=== PATIENT | female | born 1955 | race Caucasian/White ===

== ENCOUNTER 2018-05-31 14:52 | Emergency (ER) | payer OTHER ==
--- NOTE | 2018-05-31 16:01 | UC ---
Complaint Female HPI - HPI Summary HPI Summary: 63 yo female presents accompanied by daughter with complaints of urinary pressure and hematuria starting 2 days ago. She has had a UTI in the past and this feels the same. Of note, pt's BP is very elevated today. She tells me that she has a long standing history of uncontrolled HTN and has been on three HTN medications with baseline around 150s/90s per pt. Recently her HCTZ was not refilled by her doctor and she has had a change of insurance and her PCP no longer accepts that insurance - thus she is almost out of her other two HTN medications. Pt admits that she has been dizzy and flushed quite often recently, but denies SOB or chest pain. - History Of Current Complaint Chief Complaint: UCGU Stated Complaint: UTI Time Seen by Provider: 05/31/18 16:01 Hx Obtained From: Patient Severity Currently: None Pain Intensity: 0 - Allergies/Home Medications Allergies/Adverse Reactions: Allergies Allergy/AdvReac Type Severity Reaction Status Date / Time atorvastatin Allergy Muscle Ache Verified 05/31/18 18:53 SEASONAL ALLERGY Allergy STUFFINESS, Uncoded 05/31/18 17:26 EYES WATERY PMH/Surg Hx/FS Hx/Imm Hx Cardiovascular History: Hypertension - Surgical History Surgical History: Yes Surgery Procedure, Year, and Place: 2009 LEFT H[place] [facility] [place] SKIN GRAFT FOR MELANOMA ON LEFT FOOT, [facility] [place]. right mastectomy 2012 - Family History Known Family History: Positive: Hypertension - Social History Occupation: Employed Full-time Lives: With Family Alcohol Use: None Substance Use Type: None Smoking Status (MU): Light Every Day Tobacco Smoker Amount Used/How Often: 1 PPD Have You Smoked in the Last Year: Yes When Did the Patient Quit Smoking/Using Tobacco: 06/2013 - Immunization History Most Recent Influenza Vaccination: UNKNOWN Most Recent Tetanus Shot: UTD Most Recent Pneumonia Vaccination: 01/2013 Review of Systems Constitutional: Negative Skin: Negative Eyes: Negative ENT: Negative Respiratory: Negative Cardiovascular: Negative Gastrointestinal: Negative Genitourinary: Dysuria Neurovascular: Negative Musculoskeletal: Negative Neurological: Other - Dizziness Psychological: Negative All Other Systems Reviewed And Are Negative: Yes Physical Exam - Summary Physical Exam Summary: GENERAL: NAD. WDWN. No pain distress. SKIN: No rashes, sores, lesions, or open wounds. NECK: Supple. Nontender. No lymphadenopathy. CHEST: CTAB. No r/r/w. No accessory muscle use. Breathing comfortably and in no distress. CV: RRR. Without m/r/g. Pulses intact. Cap refill <2seconds ABDOMEN: Soft. NTTP. No distention or guarding. No CVA tenderness. Bowel sounds present NEURO: Alert. PSYCH: Age appropriate behavior. Triage Information Reviewed: Yes Vital Signs: Initial Vital Signs Temp 99.6 F 05/31/18 15:52 Pulse 89 05/31/18 15:52 Resp 16 05/31/18 15:52 BP 214/102 05/31/18 15:52 Pulse Ox 99 05/31/18 15:52 Laboratory Tests 05/31/18 16:14 POC Urine Color Yellow POC Urine Clarity Cloudy POC Urine pH 5.5 POC Ur Specif Dewitt <= 1.005 L POC Urine Protein Negative POC Ur Glucose (UA) Negative POC Urine Ketones Negative POC Urine Blood Trace-lysed A POC Urine Nitrite Negative POC Urine Bilirubin Negative POC Urine Urobilinogen 0.2 POC U Leukocyte Esteras 1+ A Vital Signs Reviewed: Yes Complaint Female Dx - Course Course Of Treatment: UA with signs of infection - will treat with Cipro. Regarding her BP - I discussed at length with pt and her daughter that her BP is very significantly elevated and, if left untreated at this reading, is placing her at an increased CVA and cardiac risk. Pt was hesistant, but with daughter's persistance - agreed to go to the ED for treatment of her BP. Daughter will drive her. Given that she is almost out of her two HTN medications and has been out of the third medication - I will rx for a 30 day supply of all 3 medications until she is able to find a new PCP. - Differential Dx/Diagnosis Provider Diagnoses: UTI. HTN. Dizziness Discharge - Sign-Out/Discharge Documenting (check all that apply): Patient Departure All imaging exams completed and their final reports reviewed: No Studies - Discharge Plan Condition: Stable Disposition: HOME-RECOMMEND TO ED Prescriptions: Ciprofloxacin TAB* [Cipro 250 MG Tab*] 250 mg PO BID #10 tab Hydrochlorothiazide TAB* [Hydrodiuril TAB*] 25 mg PO DAILY #30 tab Lisinopril 40 mg PO DAILY #30 tablet Metoprolol Succinate XL TAB* [Toprol XL TAB*] 100 mg PO DAILY #30 tab.xl Patient Education Materials: Urinary Tract Infection in Women (DC), Hypertension (ED) Referrals: Elan Núñez MD [Primary Care Provider] - Additional Instructions: Please go to the ER for further evaluation of your high blood pressure - Billing Disposition and Condition Condition: STABLE Disposition: Home-Recommend to ED
[2018-05-31 16:42] VITALS: BP 204/112
--- NOTE | 2018-06-01 20:00 | UC ---
- Progress Note Progress Note: + E. coli pt on cipro await sensitivity jj 06/01/18 Discharge - Sign-Out/Discharge Documenting (check all that apply): Post-Discharge Follow Up All imaging exams completed and their final reports reviewed: No Studies - Discharge Plan Condition: Stable Disposition: HOME-RECOMMEND TO ED Patient Education Materials: Urinary Tract Infection in Women (DC), Hypertension (ED) Referrals: Elan Núñez MD [Primary Care Provider] - Additional Instructions: Please go to the ER for further evaluation of your high blood pressure - Billing Disposition and Condition Condition: STABLE Disposition: Home-Recommend to ED
== END 2018-05-31 16:55 | disposition home health service (06) ==
LOC: UCEAST 14:52
DX: N39.0 Urinary tract infection, site not specified (principal); B96.20 Unspecified Escherichia coli [E. coli] as the cause of diseases classified elsewhere; R31.9 Hematuria, unspecified; Z87.440 Personal history of urinary (tract) infections; I10 Essential (primary) hypertension; R42 Dizziness and giddiness; Z96.642 Presence of left artificial hip joint; Z88.8 Allergy status to other drugs, medicaments and biological substances; Z87.891 Personal history of nicotine dependence
CPT/HCPCS: 81003; 87077; 87086; 87186; 99212; G0463

== ENCOUNTER 2018-05-31 17:14 | Observation (INO) | payer OTHER ==
[2018-05-31] MEDS ORDERED: Metoprolol Tartrate IV* 1 MG/ML 5 ML VIAL IV ONE (19:28)
[2018-05-31 20:06] LABS: ABS Basophils 0.1 10^3/ul (0-0.2); ABS Eosinophils 0.3 10^3/ul (0-0.6); ABS Lymphocytes 2.9 10^3/ul (1.0-4.8); ABS Monocytes 0.5 10^3/ul (0-0.8); ABS Neutrophils 6.8 10^3/ul (1.5-7.7); ABS Nucleated RBC 0 10^3/ul; Eosinophil % 2.5 % (0-6); Hematocrit 38 % (35-47); Hemoglobin 12.7 g/dl (12.0-16.0); Lymphocyte % 27.2 % (25-47); Mean Corpuscular HGB Conc 33 g/dl (31-36); Mean Corpuscular Hemoglobin 29 pg (27-31); Mean Corpuscular Volume 88 fL (80-97); Mean Platelet Volume 7.8 um3 (7.4-10.4); Nucleated Red Blood Cells % 0.1; Platelet Count 257 10^3/ul (150-450); Red Blood Count 4.33 10^6/ul (4.00-5.40); Red Cell Distribution Width 14 % (10.5-15); White Blood Count 10.6 10^3/ul (3.5-10.8)
[2018-05-31] MEDS ORDERED: Hydrochlorothiazide TAB* 25 MG PO ONE (20:11)
[2018-05-31] MEDS ORDERED: hydrALAZINE IV* 20 MG/ML VIAL IV SLOW PU ONE (20:11)
[2018-05-31 20:23] LABS: EGFR Non-African American 88.6 (>60)
[2018-05-31] MEDS ORDERED: Acetaminophen TAB* 325 MG PO PRN (20:41)
--- NOTE | 2018-05-31 20:41 | ED ---
Hypertension - HPI Summary HPI Summary: The pt is a 63 y/o female presenting to [facility] c/o hypertension reaching 222/132 at the highest. She was sent from Urgent Care where she had been seen for a UTI. She notes BINGHAM, lightheadedness, dizziness, urinary sx (hematuria and increased frequency) but denies CP and SOB. One of her 3 HTN pills did not get refilled 3 weeks ago. Her blood pressure at baseline is about 154/82. - History of Current Complaint Chief Complaint: EDHypertension Stated Complaint: HIGH BLOOD PRESSURE Time Seen by Provider: 05/31/18 19:25 Hx Obtained From: Patient Onset/Duration: Still Present Associated Signs & Symptoms: Negative - CP, SOB, Headaches, Urinary Symptoms, Other: - lightheadedness, dizziness - Allergies/Home Medications Allergies/Adverse Reactions: Allergies Allergy/AdvReac Type Severity Reaction Status Date / Time atorvastatin Allergy Muscle Ache Verified 05/31/18 18:53 SEASONAL ALLERGY Allergy STUFFINESS, Uncoded 05/31/18 17:26 EYES WATERY PMH/Surg Hx/FS Hx/Imm Hx Previously Healthy: No Endocrine/Hematology History: Denies: Hx Diabetes - BEING WATCHED, SLIGHT ELEVATION WITH A BLOOD TEST, Hx Sickle Cell Disease Cardiovascular History: Reports: Hx Hypertension - some meds ran out Denies: Hx Myocardial Infarction, Other Cardiovascular Problems/Disorders GI History: Denies: Other GI Disorders History: Denies: Other Problems/Disorders Musculoskeletal History: Reports: Hx Arthritis - LEFT HIP WITH REPLACEMENT IN 2009 Denies: Hx Osteoporosis, Other Musculoskeletal History Sensory History: Reports: Hx Contacts or Glasses - GLASSES Denies: Hx Hearing Aid Opthamlomology History: Reports: Hx Contacts or Glasses - GLASSES Neurological History: Denies: Other Neuro Impairments/Disorders - Cancer History Cancer Type, Location and Year: breast Hx Chemotherapy: No Hx Radiation Therapy: No - Surgical History Surgery Procedure, Year, and Place: 2009 LEFT HIP REPLACEMENT, [facility] [place]. 1988 SKIN GRAFT FOR MELANOMA ON LEFT FOOT, [facility]. right mastectomy 2013 Hx Anesthesia Reactions: No Infectious Disease History: No Infectious Disease History: Denies: Traveled Outside the [place] in Last 30 Days - Family History Known Family History: Positive: Cardiac Disease - Father and brother , Diabetes - Social History Occupation: Retired Lives: With Family Alcohol Use: None Substance Use Type: Reports: None Smoking Status (MU): Light Every Day Tobacco Smoker Amount Used/How Often: 1 PPD Have You Smoked in the Last Year: Yes Review of Systems Constitutional: Other - Positive: Dizziness, lightheadedness Cardiovascular: Other - Positive: [id number] HTN Negative: Chest Pain Negative: Shortness Of Breath Positive: hematuria, urgency Positive: Headache All Other Systems Reviewed And Are Negative: Yes Physical Exam - Summary Physical Exam Summary: Constitutional: Well-developed, Well-nourished, Alert. (-) Distressed Skin: Warm, Dry HENT: Normocephalic; Atraumatic Eyes: Conjunctiva normal Neck: Musculoskeletal ROM normal neck. (-) JVD, (-) Stridor, (-) Tracheal deviation Cardio: Rhythm regular, rate normal, Heart sounds normal; Intact distal pulses; The pedal pulses are 2+ and symmetric. Radial pulses are 2+ and symmetric. (-) Murmur Pulmonary/Chest wall: Effort normal. (-) Respiratory distress, (-) Wheezes, (-) Rales Abd: Soft, (-) epigastric tenderness, (-) Distension, (-) Guarding, (-) Rebound Musculoskeletal: (-) Edema Lymph: (-) Cervical adenopathy Neuro: Alert, Oriented x3 Psych: Mood and affect Normal Triage Information Reviewed: Yes Vital Signs On Initial Exam: Initial Vitals Temp Pulse Resp BP Pulse Ox 97.8 F 78 18 213/108 99 05/31/18 17:22 05/31/18 17:22 05/31/18 17:22 05/31/18 17:22 05/31/18 17:22 Vital Signs Reviewed: Yes Diagnostics - Vital Signs Vital Signs Temp Pulse Resp BP Pulse Ox 05/31/18 17:22 97.8 F 78 18 213/108 99 - Laboratory Lab Results: Lab Results 05/31/18 05/31/18 05/31/18 Range/Units 20:00 20:00 20:00 WBC 10.6 (3.5-10.8) 10^3/ul RBC 4.33 (4.00-5.40) 10^6/ul Hgb 12.7 (12.0-16.0) g/dl Hct 38 (35-47) % MCV 88 (80-97) fL MCH 29 (27-31) pg MCHC 33 (31-36) g/dl RDW 14 (10.5-15) % Plt Count 257 (150-450) 10^3/ul MPV 7.8 (7.4-10.4) um3 Neut % (Auto) 64.3 (38-83) % Lymph % (Auto) 27.2 (25-47) % Gulf % (Auto) 5.1 (0-7) % Eos % (Auto) 2.5 (0-6) % Baso % (Auto) 0.9 (0-2) % Absolute Neuts (auto) 6.8 (1.5-7.7) 10^3/ul Absolute Lymphs (auto) 2.9 (1.0-4.8) 10^3/ul Absolute Monos (auto) 0.5 (0-0.8) 10^3/ul Absolute Eos (auto) 0.3 (0-0.6) 10^3/ul Absolute Basos (auto) 0.1 (0-0.2) 10^3/ul Absolute Nucleated RBC 0 10^3/ul Nucleated RBC % 0.1 Sodium 142 (135-145) mmol/L Potassium 3.8 (3.5-5.0) mmol/L Chloride 107 (101-111) mmol/L Carbon Dioxide 26 (22-32) mmol/L Anion Gap 9 (2-11) mmol/L BUN 12 (6-24) mg/dL Creatinine 0.67 (0.51-0.95) mg/dL Est GFR ( Amer) 107.2 (>60) Est GFR (Non-Af Amer) 88.6 (>60) BUN/Creatinine Ratio 17.9 (8-20) Glucose 82 (70-100) mg/dL Lactic Acid 1.3 (0.5-2.0) mmol/L Calcium 9.4 (8.6-10.3) mg/dL Total Bilirubin 0.20 (0.2-1.0) mg/dL AST 11 L (13-39) U/L ALT 9 (7-52) U/L Alkaline Phosphatase 60 (34-104) U/L Troponin I 0.00 (<0.04) ng/mL Total Protein 6.9 (6.4-8.9) g/dL Albumin 3.9 (3.2-5.2) g/dL Globulin 3.0 (2-4) g/dL Albumin/Globulin Ratio 1.3 (1-3) Result Diagrams: 05/31/18 20:00 05/31/18 20:00 Lab Statement: Any lab studies that have been ordered have been reviewed, and results considered in the medical decision making process. - Radiology CXR Radiology Interpretation Completed By: ED Physician - Pending official report - EKG 19:39 Cardiac Rate: NL - 67 bpm EKG Rhythm: Sinus Rhythm EKG Interpretation: No STEMI Hypertension Course/Dx - Course Course Of Treatment: A 63 year-old F presents to the ED with a CC of acute on chronic hypertension reaching 222/132 at the highest. She was sent from Urgent Care where she had been seen for a UTI. She notes BINGHAM, lightheadedness, dizziness , urinary sx (hematuria and increased frequency) but denies CP and SOB. One of her 3 HTN pills did not get refilled 3 weeks ago. Her blood pressure at baseline is about 154/82. A physical exam Is unremarkable. An EKG is unremarkable. In the ED course, the pt was given Acetaminophen 650mg PO, Hydralazine 5mg IV, Hydrochlorothiazide 25 mg PO and Metoprolol 5 mg which improved the symptoms. Patient will be admitted with a final Dx of unspecified CP and hypertensive crisis. Pt is agreeable with this plan. Allergies noted. - Diagnoses Provider Diagnoses: Chest pain, unspecified, Hypertensive emergency - Physician Notifications Discussed Care Of Patient With: Eri Brooks - Hospitalist Time Discussed With Above Provider: 21:50 Instructed by Provider To: Admit As Inpatient Discharge - Sign-Out/Discharge Documenting (check all that apply): Patient Departure - Admit All imaging exams completed and their final reports reviewed: Yes - Discharge Plan Disposition: ADMITTED TO [facility] - Attestation Statements Document Initiated by Scribe: Yes Documenting Scribe: Steff Chavarria Provider For Whom Scribe is Documenting (Include Credential): Dr. Joe Tom MD Scribe Attestation: Steff Calvo , scribed for Dr. Joe Tom MD on 05/31/18 at 2302.
[2018-05-31] MEDS ORDERED: Ciprofloxacin TAB* 250 MG PO SCH (21:00)
[2018-05-31] MEDS ORDERED: hydrALAZINE IV* 20 MG/ML VIAL IV SLOW PU PRN (21:22)
[2018-05-31] MEDS ORDERED: hydrALAZINE IV* 20 MG/ML VIAL ONE (21:59)
[2018-05-31] MEDS ORDERED: LORazepam INJ* 2 MG/ML 1 ML VIAL IV PUSH ONE (22:35)
[2018-05-31] MEDS ORDERED: Ibuprofen TAB* 400 MG PO PRN (22:40)
--- NOTE | 2018-05-31 22:53 | HP ---
Review of Systems - Medications/Allergies Allergies/Adverse Reactions: Allergies Allergy/AdvReac Type Severity Reaction Status Date / Time atorvastatin Allergy Muscle Ache Verified 05/31/18 18:53 SEASONAL ALLERGY Allergy STUFFINESS, Uncoded 05/31/18 17:26 EYES WATERY Medications: Current Medications Acetaminophen (Tylenol Tab*) 650 mg PO Q4H PRN PRN Reason: FEVER/PAIN Amlodipine Besylate (Norvasc Tab*) 5 mg PO DAILY [facility] Ciprofloxacin (Cipro Tab*) 500 mg PO Q12HR [facility] Ciprofloxacin (Cipro Tab*) 500 mg PO BID [facility] Enoxaparin Sodium (Lovenox(*)) 40 mg SUBCUT Q24H [facility] Hydralazine HCl (Apresoline Iv*) 5 mg IV SLOW PU Q6H PRN PRN Reason: SYSTOLIC BP GREATER THAN: Last Admin: 05/31/18 22:00 Dose: 5 mg Ibuprofen (Motrin Tab*) 400 mg PO Q6H PRN PRN Reason: PAIN Metoprolol Succinate (Toprol Xl Tab*) 100 mg PO DAILY [facility] Non-Formulary Medication (Lisinopril [Lisinopril]) 40 mg PO DAILY [facility] Exam - Exam Vital Signs: Vital Signs (72 hours) 05/31/18 05/31/18 05/31/18 17:22 19:03 19:05 Temperature 97.8 F Pulse Rate 78 68 67 Respiratory 18 23 17 Rate Blood Pressure 213/108 206/131 (mmHg) O2 Sat by Pulse 99 99 99 Oximetry 05/31/18 05/31/18 05/31/18 19:22 19:52 20:00 Temperature Pulse Rate 66 70 64 Respiratory 21 20 20 Rate Blood Pressure 192/98 203/100 192/100 (mmHg) O2 Sat by Pulse 98 96 96 Oximetry 05/31/18 05/31/18 05/31/18 20:01 20:08 20:22 Temperature Pulse Rate 61 65 63 Respiratory 15 24 20 Rate Blood Pressure 195/107 191/98 (mmHg) O2 Sat by Pulse 98 98 96 Oximetry 05/31/18 05/31/18 05/31/18 20:48 21:00 21:03 Temperature Pulse Rate 67 66 65 Respiratory 19 17 16 Rate Blood Pressure 196/107 182/100 (mmHg) O2 Sat by Pulse 97 98 98 Oximetry 05/31/18 05/31/18 21:33 21:48 Temperature Pulse Rate 69 69 Respiratory 20 18 Rate Blood Pressure 179/103 188/93 (mmHg) O2 Sat by Pulse 97 97 Oximetry
[2018-05-31] MEDS ORDERED: Enoxaparin(*) 40 MG/0.4 ML SYR SUBCUT SCH (23:00)
[2018-05-31] MEDS: amLODIPine TAB* 5 MG PO SCH (23:05)
[2018-05-31] MEDS: Ciprofloxacin TAB* 250 MG PO SCH (23:05)
[2018-06-01 07:03] LABS: ABS Basophils 0.1 10^3/ul (0-0.2); ABS Eosinophils 0.3 10^3/ul (0-0.6); ABS Lymphocytes 2.7 10^3/ul (1.0-4.8); ABS Monocytes 0.5 10^3/ul (0-0.8); ABS Neutrophils 5.5 10^3/ul (1.5-7.7); ABS Nucleated RBC 0 10^3/ul; Eosinophil % 3.3 % (0-6); Hematocrit 37 % (35-47); Hemoglobin 12.5 g/dl (12.0-16.0); Lymphocyte % 29.8 % (25-47); Mean Corpuscular HGB Conc 34 g/dl (31-36); Mean Corpuscular Hemoglobin 30 pg (27-31); Mean Corpuscular Volume 88 fL (80-97); Mean Platelet Volume 7.7 um3 (7.4-10.4); Nucleated Red Blood Cells % 0.3; Platelet Count 231 10^3/ul (150-450); Red Blood Count 4.17 10^6/ul (4.00-5.40); Red Cell Distribution Width 14 % (10.5-15); White Blood Count 9.1 10^3/ul (3.5-10.8)
[2018-06-01 07:25] LABS: EGFR Non-African American 85.7 (>60)
--- NOTE | 2018-06-01 07:53 | RAD ---
Indication: Hypertension. Single frontal view of the chest performed at 1935 hours was reviewed. Comparison is made with previous exam dated March 17, 2018. No mediastinal shift is noted. Heart is of normal size and configuration. Lung pulido appear clear. IMPRESSION: NO ACTIVE CARDIOPULMONARY DISEASE IS NOTED. R1
--- NOTE | 2018-06-01 08:01 | ADMNOTE ---
Subjective Date of Service: 05/31/18 Interval History: this is a admission h/p hpi 63 yr old wf went to her prior pcp due to uti related symptoms pt was found to be very htn and was told her pcp did not accept her insurance any more and was d /cd from their service. pt was found to have sbp >220 ---> she has been taking three different b/p meds but ran out of ONLY hctz for three weeks ---> she got two doses of hydralazine 5 mg with no relief sbp still 180 ---> very anxious --- > ativan 1 mg times one given and norvasc added to am ---> she complained feeling dizzy with occassional b/l temporal bell ---> bell was not presented when seen pt was on chantix but still smokes few cig daily has hx of cig 1-1.5 ppd for 40 + yrs pt has been on cipro for one dose for her uti Family History: Unchanged from Admission - htn dm---> father at age 61 due to cad brother + dm and cad Social History: Findings - still few cig on chantix used to smoke 1-1.5 ppd for 40+ yrs, no etoh walks indep comes from home Past Medical History: Findings - phx htn morbid obesity hyperlidemia cig smoking still smokes on chantix anxiety htn breast ca s/p r mastectomy 5 yrs ago had 59 months of tamoxifen remained in remission xhs s/p left foot melanoma excision 30 yrs ago s/p left hip orif >10 yrs ago Review of Systems - Measurements Intake and Output: Intake and Output Last 24 Hours 05/30/18 05/31/18 06/01/18 06/02/18 06:59 06:59 06:59 06:59 Intake Total 0 Balance 0 Weight 177 lb 14.4 oz Intake: Oral 0 Other: # Bowel Movements 0 # Voids 1 - Review of Systems General Comments: 08/02 ros went her with her please refer to hpi Objective Active Medications: Acetaminophen (Tylenol Tab*) 650 mg PO Q4H PRN PRN Reason: FEVER/PAIN Last Admin: 05/31/18 23:04 Dose: 650 mg Amlodipine Besylate (Norvasc Tab*) 5 mg PO DAILY [facility] Last Admin: 05/31/18 23:05 Dose: 5 mg Ciprofloxacin (Cipro Tab*) 500 mg PO Q12HR [facility] Last Admin: 05/31/18 23:05 Dose: 500 mg Enoxaparin Sodium (Lovenox(*)) 40 mg SUBCUT Q24H [facility] Last Admin: 05/31/18 23:31 Dose: 40 mg Hydralazine HCl (Apresoline Iv*) 5 mg IV SLOW PU Q6H PRN PRN Reason: SYSTOLIC BP GREATER THAN: Last Admin: 05/31/18 22:00 Dose: 5 mg Ibuprofen (Motrin Tab*) 400 mg PO Q6H PRN PRN Reason: PAIN Lisinopril (Prinivil Tab*) 40 mg PO DAILY [facility] Metoprolol Succinate (Toprol Xl Tab*) 100 mg PO DAILY [facility] Vital Signs - 8 hr 06/01/18 06/01/18 06/01/18 00:03 02:53 03:49 Temperature 98 F 97.7 F Pulse Rate 83 75 Respiratory 22 22 20 Rate Blood Pressure 129/70 138/92 (mmHg) O2 Sat by Pulse 98 98 Oximetry 06/01/18 07:33 Temperature Pulse Rate Respiratory 20 Rate Blood Pressure (mmHg) O2 Sat by Pulse Oximetry Oxygen Devices in Use Now: None Eyes: No Scleral Icterus, PERRLA Ears/Nose/Mouth/Throat: NL Teeth, Lips, Gums, Clear Oropharnyx, Mucous Membranes Moist Neck: NL Appearance and Movements; NL JVP, Trachea Midline, No Thyroid Enlargement, Masses Respiratory: Symmetrical Chest Expansion and Respiratory Effort, Clear to Auscultation Cardiovascular: NL Sounds; No Murmurs; No JVD, RRR, No Edema Abdominal: NL Sounds; No Tenderness; No Distention Extremities: No Edema, No Clubbing, Cyanosis Skin: No Rash or Ulcers Neurological: Alert and Oriented x 3, NL Sensation, NL Muscle Strength and Tone - ekg ns no acute st t changes seen Result Diagrams: 06/01/18 06:46 06/01/18 06:46 Additional Lab and Data: Lab Results 05/31/18 05/31/18 05/31/18 Range/Units 20:00 20:00 20:00 WBC 10.6 (3.5-10.8) 10^3/ul RBC 4.33 (4.00-5.40) 10^6/ul Hgb 12.7 (12.0-16.0) g/dl Hct 38 (35-47) % MCV 88 (80-97) fL MCH 29 (27-31) pg MCHC 33 (31-36) g/dl RDW 14 (10.5-15) % Plt Count 257 (150-450) 10^3/ul MPV 7.8 (7.4-10.4) um3 Neut % (Auto) 64.3 (38-83) % Lymph % (Auto) 27.2 (25-47) % Graves % (Auto) 5.1 (0-7) % Eos % (Auto) 2.5 (0-6) % Baso % (Auto) 0.9 (0-2) % Absolute Neuts (auto) 6.8 (1.5-7.7) 10^3/ul Absolute Lymphs (auto) 2.9 (1.0-4.8) 10^3/ul Absolute Monos (auto) 0.5 (0-0.8) 10^3/ul Absolute Eos (auto) 0.3 (0-0.6) 10^3/ul Absolute Basos (auto) 0.1 (0-0.2) 10^3/ul Absolute Nucleated RBC 0 10^3/ul Nucleated RBC % 0.1 Sodium 142 (135-145) mmol/L Potassium 3.8 (3.5-5.0) mmol/L Chloride 107 (101-111) mmol/L Carbon Dioxide 26 (22-32) mmol/L Anion Gap 9 (2-11) mmol/L BUN 12 (6-24) mg/dL Creatinine 0.67 (0.51-0.95) mg/dL Est GFR ( Amer) 107.2 (>60) Est GFR (Non-Af Amer) 88.6 (>60) BUN/Creatinine Ratio 17.9 (8-20) Glucose 82 (70-100) mg/dL Lactic Acid 1.3 (0.5-2.0) mmol/L Calcium 9.4 (8.6-10.3) mg/dL Total Bilirubin 0.20 (0.2-1.0) mg/dL AST 11 L (13-39) U/L ALT 9 (7-52) U/L Alkaline Phosphatase 60 (34-104) U/L Troponin I 0.00 (<0.04) ng/mL Total Protein 6.9 (6.4-8.9) g/dL Albumin 3.9 (3.2-5.2) g/dL Globulin 3.0 (2-4) g/dL Albumin/Globulin Ratio 1.3 (1-3) Assess/Plan/Problems-Billing Assessment: 63 yr old wf with hx of htn anxiety breast ca in remission about 59 months presented to er after she was d/cd from pcp service ---> her sbp was 220 ---> ran out of hctz for 3 weeks but has been taking the rest of b/p meds - Patient Problems (1) Hypertensive urgency Status: Acute Code(s): I16.0 - HYPERTENSIVE URGENCY SNOMED Code(s): 686744449 Comment: sbp still high after two doses of hydralazine iv norvac added and dropped hctz but continue her home sbp meds tele with [facility] echo ativan 1 mg ivp times one given (2) Breast calcification, right Status: Acute Code(s): R92.1 - MAMMOGRAPHIC CALCIFCN FOUND ON DIAGNOSTIC IMAGING OF BREAST SNOMED Code(s): 261289384 Comment: supportive care tamoxifen was d/cd by her onc outpt (3) Anxiety Status: Acute Code(s): F41.9 - ANXIETY DISORDER, UNSPECIFIED SNOMED Code(s) : 62100062 Comment: ativan one dose given ? low dose antidepressant (4) Cigar smoker Status: Acute Code(s): F17.290 - NICOTINE DEPENDENCE, OTHER TOBACCO PRODUCT, UNCOMPLICATED SNOMED Code(s): 06329071 Comment: non compliance - supportive care no chantix given because she still smokes despite of chantix (5) Lightheadedness Status: Acute Code(s): R42 - DIZZINESS AND GIDDINESS SNOMED Code(s): 164904369 Comment: prob related to htn urgency consider check orthostatic if still symptom + echo
[2018-06-01] MEDS: amLODIPine TAB* 5 MG PO SCH (08:59)
[2018-06-01] MEDS: Ciprofloxacin TAB* 250 MG PO SCH (08:59)
[2018-06-01] MEDS ORDERED: Metoprolol Succinate XL TAB* 100 MG PO SCH (09:00)
[2018-06-01] MEDS ORDERED: Lisinopril TAB* 10 MG PO SCH (09:00)
--- NOTE | 2018-06-01 09:31 | ECHO ---
Patient: SEBASTIAN RICARDO [facility] Rec#: [id number] : 1955 Date: 06/01/2018 Age: 63y Height: 163 cm / 64.2 in Weight: 80.5 kg / 177.4 lbs Sex: F BSA: 1.9 Room#: 451 Admit Date#: 05/31/2018 Type: Inpatient Referring: Eri Brooks Reading: Xavier Ibrahim MD Refinish Technician: Crissy Tejada RN RDCS Transthoracic Echocardiogram Indication: HTN urgency BP: 138/92 HR: 73 Rhythm: NSR Findings History: HTN, breast cancer, smoker Technical Comments: The study quality is fair. The study is technically limited due to patient body habitus. The study is technically limited due to the patient's smoking history. Left Ventricle: The left ventricular chamber size is normal. Mild concentric left ventricular hypertrophy is observed. Global left ventricular wall motion and contractility are within normal limits. There is normal left ventricular systolic function. The estimated ejection fraction is 60-65%. There is an E to A reversal in the mitral valve flow pattern suggestive of diastolic dysfunction. Left Atrium: The left atrial chamber size is normal. Right Ventricle: The right ventricular chamber size and systolic function are within normal limits. The right ventricle wall thickness is mildly increased. The right ventricular global systolic function is normal. Right Atrium: The right atrial cavity size is normal. Aortic Valve: The aortic valve is trileaflet. The aortic valve leaflets are mildly thickened. There is aortic annular calcification. There is no evidence of aortic regurgitation. There is no evidence of aortic stenosis. Mitral Valve: The mitral valve leaflets are mildly thickened. There is a trace of mitral regurgitation. Tricuspid Valve: The tricuspid valve leaflets are normal. There is trace to mild tricuspid regurgitation. There is evidence of mild pulmonary hypertension. Pulmonic Valve: The pulmonic valve structure is not well visualized. There is no evidence of pulmonic regurgitation. There is no pulmonic stenosis. Pericardium: There is no significant pericardial effusion. A pericardial fat pad is visualized. Aorta: The ascending aorta is not well visualized. There is no dilatation of the aortic arch. There is no dilation of the aortic root. Pulmonary Artery: The main pulmonary artery is not well visualized. Venous: The inferior vena cava appears normal in size. There is a greater than 50% respiratory change in the inferior vena cava dimension. Conclusions There is normal left ventricular systolic function. The estimated ejection fraction is 60-65%. Global left ventricular wall motion and contractility are within normal limits. Mild concentric left ventricular hypertrophy is observed. There is an E to A reversal in the mitral valve flow pattern suggestive of diastolic dysfunction. Normal cardiac chamber sizes. Functionally benign heart valves. There is evidence of mild pulmonary hypertension. There is no prior echocardiogram available to compare with at this time. Measurements Name Value Normal Range RVDdMajor (2D) 2.6 cm (2.2 - 4.4) RVAW (2D) 0.7 cm (0.2 - 0.5) RAd ISD 4CH 3.3 cm (3.4 - 4.9) RA (A4C)W 3.1 cm (2.9 - 4.6) IVSd (2D) 1.2 cm (0.6 - 1) LVPWd (2D) 1.1 cm (0.6 - 1) LVIDd (2D) 3.8 cm (3.6 - 5.4) LVIDs (2D) 2.5 cm - LV FS (2D) 34 % (25 - 45) Aortic Annulus 1.7 cm (1.4 - 2.6) Ao root diameter (2D) 2.9 cm (2.1 - 3.5) Aortic arch 2.8 cm (1.8 - 3.4) LA dimension (AP) 2D 2.9 cm (2.3 - 3.8) LAd ISD 4CH 4 cm (2.9 - 5.3) LA ISD 4CH W 3.2 cm (2.5 - 4.5) Name Value Normal Range LA ESV BP (A/L) index 21.2 ml/m2 - Name Value Normal Range MV E-wave Vmax 0.83 m/sec - MV deceleration time 338 msec - MV A-wave Vmax 1.1 m/sec - MV E:A ratio 0.8 ratio - LV septal e' Vmax 0.08 m/sec - LV lateral e' Vmax 0.07 m/sec - LV E:e' septal ratio 10.4 ratio - LV E:e' lateral ratio 11.9 ratio - Name Value Normal Range AV Vmax 1.5 m/sec - AV VTI 33 cm - AV peak gradient 9 mmHg - AV mean gradient 6 mmHg - LVOT Vmax 0.99 m/sec - LVOT VTI 20.3 cm - LVOT peak gradient 4 mmHg - LVOT mean gradient 2 mmHg - JEFFERSON Vmax 0.66 m/sec - Name Value Normal Range TR Vmax 2.9 m/sec - TR peak gradient 34 mmHg - RAP 3 mmHg - RVSP 37 mmHg - IVC diameter 1.2 cm - Name Value Normal Range PV Vmax 0.82 m/sec -
[2018-06-01 11:19] VITALS: BP 152/88
[2018-06-01] MEDS ORDERED: Ciprofloxacin TAB* 250 MG PO ONE (11:44)
--- NOTE | 2018-06-02 06:55 | DS ---
CC: [facility]* DISCHARGE SUMMARY: DATE OF ADMISSION: 05/31/18 DATE OF DISCHARGE: 06/01/18 ATTENDING PHYSICIAN: Dr. Celeste Ba* (dictated by KIKO Villegas). PRIMARY CARE PROVIDER: [facility]. PRIMARY DISCHARGE DIAGNOSIS: Hypertensive urgency. STUDIES DONE WHILE IN THE HOSPITAL: Chest x-ray from 05/31/18 read as no active cardiopulmonary disease. Electrocardiogram from 05/31/18 shows normal sinus rhythm, no ST segment abnormalities, no hypertrophy or enlargement, right axis deviation, rate of 67, QTc of 429. Repeat EKG from 06/01/18 shows no significant changes. Transthoracic echocardiogram from 06/01/18 read as left ventricular chamber size is normal, mild concentric left ventricular hypertrophy is observed, global left ventricular wall motion contractility within normal limits, E/A reversal consistent with mitral valve condition with just diastolic dysfunction, estimated ejection fraction of 60% to 65%, normal cardiac chamber sizes with functionally benign heart valve, mild pulmonary hypertension, no previous echocardiogram to compare. MEDICATIONS AT DISCHARGE: 1. Tylenol 650 mg p.o. daily. 2. Amlodipine 5 mg p.o. daily. 3. Ciprofloxacin 250 mg p.o. b.i.d. x4. 4. Lisinopril 40 mg p.o. daily. 5. Metoprolol succinate 100 mg p.o. daily. HOSPITAL COURSE: This is a brief summary of the patient's presentation. For more details, please see history and physical and admission notes from Dr. Eri Brooks on 05/31/18. In brief, the patient is a 63-year-old female with past medical history significant for breast cancer, status post mastectomy and tamoxifen, melanoma excision, obesity, hyperlipidemia, and tobacco abuse, who presents to the emergency department with initially symptoms of UTI and was found to have hypertension with blood pressures in the systolics over 200. The patient was given IV hydralazine and started on amlodipine. The patient received went off her hydrochlorothiazide, but continued to be on lisinopril and metoprolol. The patient was asymptomatic, had no changes in her vision, no chest pain, no shortness of breath. The patient had no kidney dysfunction. The patient had a slightly elevated troponin of 0.04, repeat 0.05, likely related to demand ischemia. The patient had a cholesterol panel, which showed elevated triglycerides, low HDL, and LDL of 88. The patient had a normal TSH and T4. The patient remained asymptomatic overnight. The patient's blood pressure was able to be controlled with amlodipine, lisinopril, and metoprolol. The patient was stable and amenable for discharge on 06/01/18. The patient had symptoms consistent with the urinary tract infection including pressure, dysuria, and urgency. The patient was started on ciprofloxacin while in the hospital, received 2 doses and tolerated it well. PHYSICAL EXAMINATION ON THE DAY OF DISCHARGE: General: The patient is a 63- year- old female, who appears stated age and sitting comfortably in the bed, in no acute distress. HEENT: Head: Normocephalic, atraumatic. Sclerae anicteric. No conjunctival injection. Nasal mucosa moist. Oral mucosa moist. No pharyngeal erythema, discharge, or exudate. Neck: Supple, nontender. No lymphadenopathy. No carotid bruit auscultated. No JVD. Cardiac: Regular rate and rhythm. No clicks, murmurs, gallops, or rubs. Pulses 2+ in bilateral dorsalis pedis, posterior tibialis, and radial areas. Vital Signs: Temperature 98.0, pulse rate 74, respiratory rate 18, oxygen saturation 98% on room air, blood pressure 157/88. Abdomen: Soft, nontender, nondistended. Bowel sounds present. Normoactive bowel sound in all 4 quadrants. No hepatosplenomegaly. No abdominal bruits auscultated. No hepatojugular reflux. Genitourinary: No suprapubic or CVA tenderness. Skin: Clean, dry, and intact. No rash. DISCHARGE PLAN: The patient will be discharged to home. The patient will be started on amlodipine in place of hydrochlorothiazide. The patient's blood pressure is well controlled on this regimen without any significant p.r.n. medications. The patient was instructed to take her blood pressure twice daily until she is able to follow up with the [facility]. The patient should call the [facility] if they do not call her within 2 days to set up an appointment within 1 week. The patient, during hospitalization, was counseled on smoking cessation. She states she recently finished Chantix, has nicotine gum at home and is interested in quitting, though she has been unable to quit in the past. The patient's LDL cholesterol was 88. The patient has an allergy to ATORVASTATIN. The patient was not started on atorvastatin; however, she has an atherosclerotic vascular disease risk of over 7.5% and statin therapy would be advisable in the future. The patient had a hemoglobin A1c of 5.7, being on the lower end of the prediabetic range. The patient will have to start her medication for this at this time, diet and exercise for weight loss is recommended. The patient had an elevated troponin while in the hospital, likely related to demand ischemia. The patient had no chest pain or ST segment changes. The patient should return to the hospital for alarming symptoms such as chest pain, shortness of breath, passing out, changes in vision , lack of urine output, or other alarming symptoms. The patient was recently stopped on her tamoxifen. The patient recently ran out of refills for her tamoxifen and it is unclear whether she should be taking this or not. The patient should follow up with her oncologist to discuss the pros and cons of continued tamoxifen treatment. TIME SPENT: Approximately 75 minutes were spent on the discharge of this patient, 30 was spent [id number] with the patient obtaining history and physical and discussing treatment plan. KIKO VILLEGAS [id number]/JORGE #: [id number] JARED
== END 2018-06-01 15:18 | disposition home or self-care (01) ==
LOC: ED 17:14 → MEDTELE 20:41
PROVIDERS: ADMIT Internal Medicine; ATTEND Internal Medicine
DX: I16.0 Hypertensive urgency (principal); R51 Headache; R92.1 Mammographic calcification found on diagnostic imaging of breast; F41.9 Anxiety disorder, unspecified; R07.9 Chest pain, unspecified; R42 Dizziness and giddiness; F17.290 Nicotine dependence, other tobacco product, uncomplicated
CPT/HCPCS: 36415; 71045; 80053; 80061; 83036; 83605; 84439; 84443; 84484; 85025; 93005; 93306; 96374; 96375; 99284; A9270-GY; G0378; J0360; J1650; J2060; J3490